=== PATIENT | female | born 1985 | race African-American/Black ===

== ENCOUNTER 2017-12-31 16:04 | Emergency (ER) | payer SELFPAY ==
[2017-12-31] MEDS ORDERED: Gentamicin Ophth Soln 0.3% 5 ml Bottle ONE (17:14)
[2017-12-31] MEDS ORDERED: Ibuprofen 200 MG TAB ONE (17:14)
== END 2017-12-31 17:26 | disposition home or self-care (01) ==
LOC: ERS 16:04
DX: H10.9 Unspecified conjunctivitis (principal); F41.9 Anxiety disorder, unspecified
CPT/HCPCS: 99283

== ENCOUNTER 2020-08-19 14:00 | Emergency (ER) | payer SELFPAY | END 2020-08-19 15:56 | disposition left against medical advice (07) | LOC: ERS 14:00 | DX: Z53.21 Procedure and treatment not carried out due to patient leaving prior to being seen by health care provider (principal) ==

== ENCOUNTER 2023-03-06 08:22 | Emergency (ER) | payer MEDICARE ==
[2023-03-06 09:21] LABS: #Eosinphils 0.2 thou/uL (0.0-0.7); #Monocytes 0.7 thou/uL (0.11-0.59); %Basophils 0.5 % (0.0-1.0); %Eosinophils 2.4 % (0.0-10.0); %Lymphocytes 37.1 % (21.0-51.0); %Monocytes 8.5 % (0.0-10.0); %Neutrophils 51.1 % (42.0-75.0); Hematocrit 38.3 % (36.0-47.0); Hemoglobin 12.4 g/dL (12.0-16.0); Mean Corpuscular HGB CONC 32.4 g/dL (32.0-36.0); Mean Corpuscular Hemoglobin 29.5 pg (27.0-31.0); Mean Platelet Volume 10.1 fL (7.4-10.4); Platelet Count 441 10x3/uL (130-400); RBC Distribution Width 13.2 % (11.5-14.5); Red Blood Cell (RBC) Count 4.21 mill/uL (4.20-5.40); White Blood Cell (WBC) Count 7.9 10x3/uL (4.8-10.8)
[2023-03-06 09:27] LABS: BHCG - Serum Negative (NEGATIVE); Pregs Control Background? CLEAR/WHITE (CLR/WHITE); Pregs Control Bar Appear? YES (CONTROL BAR)
[2023-03-06 09:44] LABS: ALT (SGPT) 50 U/L (8-55); AST (SGOT) 38 U/L (5-34); Albumin 4.3 g/dL (3.5-5.0); Alkaline Phosphatase 90 U/L (40-110); Anion Gap 10 mmol/L (10-20); BUN (Urea Nitrogen) 15 mg/dL (7.0-18.7); Bilirubin, Total 0.2 mg/dL (0.2-1.2); Calc. Creatinine Clearance 0 mL/min (70-130); Calcium 10.1 mg/dL (7.8-10.44); Carbon Dioxide 25 mmol/L (22-29); Chloride 104 mmol/L (98-107); Estimated GFR 82; Globulin 4.4 g/dL (2.4-3.5); Glucose 106 mg/dL (70-105); Potassium 3.7 mmol/L (3.5-5.1); Protein, Total 8.7 g/dL (6.0-8.3); Sodium 135 mmol/L (136-145)
== END 2023-03-06 10:36 | disposition home or self-care (01) ==
LOC: ERS 08:22
DX: R53.83 Other fatigue (principal); I10 Essential (primary) hypertension; Z79.899 Other long term (current) drug therapy
CPT/HCPCS: 36415; 80053; 84443; 84703; 85025; 99283

== ENCOUNTER 2023-03-31 05:06 | Observation (INO) | payer OTHER, MEDICARE ==
[2023-03-31 05:22] LABS: #Basophils 0.1 thou/uL (0.0-0.2); #Monocytes 0.6 thou/uL (0.11-0.59); #Neutrophils 5.1 thou/uL (1.40-6.50); %Basophils 0.6 % (0.0-1.0); %Lymphocytes 32.3 % (21.0-51.0); %Monocytes 7.1 % (0.0-10.0); %Neutrophils 59.8 % (42.0-75.0); Hematocrit 38.3 % (36.0-47.0); Hemoglobin 12.3 g/dL (12.0-16.0); Mean Corpuscular HGB CONC 32.1 g/dL (32.0-36.0); Mean Corpuscular Hemoglobin 29.1 pg (27.0-31.0); Mean Corpuscular Volume 90.8 fl (78.0-98.0); Platelet Count 376 10x3/uL (130-400); RBC Distribution Width 13.2 % (11.5-14.5); Red Blood Cell (RBC) Count 4.22 mill/uL (4.20-5.40); White Blood Cell (WBC) Count 8.5 10x3/uL (4.8-10.8)
[2023-03-31 05:39] LABS: BHCG - Serum Negative (NEGATIVE); Pregs Control Background? CLEAR/WHITE (CLR/WHITE); Pregs Control Bar Appear? YES (CONTROL BAR)
[2023-03-31 05:58] LABS: ALT (SGPT) 53 U/L (8-55); AST (SGOT) 41 U/L (5-34); Alkaline Phosphatase 85 U/L (40-110); Anion Gap 13 mmol/L (10-20); BUN (Urea Nitrogen) 17 mg/dL (7.0-18.7); Bilirubin, Total 0.3 mg/dL (0.2-1.2); Calc. Creatinine Clearance 0 mL/min (70-130); Calcium 9.7 mg/dL (7.8-10.44); Carbon Dioxide 22 mmol/L (22-29); Chloride 104 mmol/L (98-107); Estimated GFR 78; Glucose 194 mg/dL (70-105); Potassium 3.5 mmol/L (3.5-5.1); Sodium 135 mmol/L (136-145)
[2023-03-31 06:01] LABS: Troponin I 0.041 ng/mL (< 0.028)
[2023-03-31] MEDS ORDERED: Acetaminophen 325 MG TAB PO PRN (08:05)
[2023-03-31] MEDS ORDERED: Calcium Carbonate 500 MG ChewTAB PO PRN (08:05)
[2023-03-31] MEDS ORDERED: Senokot S 8.6-50 MG TAB PO PRN (08:05)
[2023-03-31] MEDS ORDERED: Ondansetron PF 4 MG/2 ML Vial IVP PRN (08:05)
[2023-03-31 08:46] LABS: Troponin I 0.026 ng/mL (< 0.028)
[2023-03-31] MEDS ORDERED: Sodium Chloride 0.9% 1,000 ML IV SCH (09:00)
[2023-03-31 09:41] VITALS: BMI 35.0
[2023-03-31 10:34] LABS: Amphetamine Not Detected (NotDetected); Barbiturates Screen Not Detected (NotDetected); Benzodiazepine Screen Not Detected (NotDetected); Cocaine Metabolite Screen Not Detected (NotDetected); Methadone Not Detected (NotDetected); Methamphetamine Not Detected (NotDetected); Opiate Screen Not Detected (NotDetected); Oxycodone Screen Not Detected (NotDetected); Phencyclidine (PCP) Not Detected (NotDetected); THC/Cannabinoid Screen Not Detected (NotDetected); Tricyclic Screen Not Detected (NotDetected)
[2023-03-31] MEDS ORDERED: Iopamidol-370 76% 500 ML MDV (1 ML CHARGE) ONE (15:24)
[2023-03-31 17:09] LABS: Bilirubin Negative (Negative); Blood, Urine Negative (Negative); CAUTI Indications for Culture Fever or rigors; Clarity Clear (Clear); Glucose, Urine (Dipstick) Normal (Negative); Ketone, Urine Negative (Negative); Leukocyte 500 Leu/uL (Negative); Nitrite Negative (Negative); Protein, Urine (Dipstick) Negative (Neg-Trace); RBC/HPF 0-3 HPF (0-3); Urobilinogen Normal mg/dL (Less than 2)
[2023-03-31 17:18] LABS: Bacteria/HPF 1+ HPF (None Seen)
[2023-03-31 17:22] LABS: Transitional Epithelial 0-3 HPF (None Seen)
[2023-03-31 17:23] LABS: Urine Culture Reflex No No
[2023-04-01 06:08] LABS: #Basophils 0.1 thou/uL (0.0-0.2); #Eosinphils 0.3 thou/uL (0.0-0.7); #Monocytes 0.6 thou/uL (0.11-0.59); %Basophils 0.7 % (0.0-1.0); %Eosinophils 3.7 % (0.0-10.0); %Lymphocytes 31.3 % (21.0-51.0); %Neutrophils 56.2 % (42.0-75.0); Hematocrit 36.9 % (36.0-47.0); Hemoglobin 11.7 g/dL (12.0-16.0); Mean Corpuscular HGB CONC 31.7 g/dL (32.0-36.0); Mean Corpuscular Hemoglobin 28.7 pg (27.0-31.0); Mean Corpuscular Volume 90.7 fl (78.0-98.0); Mean Platelet Volume 10.1 fL (7.4-10.4); Platelet Count 353 10x3/uL (130-400); RBC Distribution Width 13.1 % (11.5-14.5); Red Blood Cell (RBC) Count 4.07 mill/uL (4.20-5.40)
[2023-04-01 06:35] LABS: ALT (SGPT) 40 U/L (8-55); AST (SGOT) 29 U/L (5-34); Albumin 3.6 g/dL (3.5-5.0); Alkaline Phosphatase 76 U/L (40-110); Anion Gap 11 mmol/L (10-20); BUN (Urea Nitrogen) 13 mg/dL (7.0-18.7); Bilirubin, Total 0.2 mg/dL (0.2-1.2); Calc. Creatinine Clearance 129 mL/min (70-130); Carbon Dioxide 23 mmol/L (22-29); Cardiac Risk 3.3 (Less than 4.5); Chloride 104 mmol/L (98-107); Cholesterol 163 mg/dl (< 200 Desired); Estimated GFR 91; Globulin 3.7 g/dL (2.4-3.5); Glucose 124 mg/dL (70-105); HDL Cholesterol 49 mg/dL (>60 Neg Risk); LDL Cholesterol, Calculated 85 mg/dL; Potassium 3.8 mmol/L (3.5-5.1); Protein, Total 7.3 g/dL (6.0-8.3); Sodium 134 mmol/L (136-145); Triglycerides 147 mg/dL (Less than 150)
[2023-04-01] MEDS: OXcarbazepine 300 MG TAB PO SCH (20:51)
[2023-04-02] MEDS ORDERED: Lisinopril 10 MG TAB PO SCH (09:00)
[2023-04-02] MEDS ORDERED: Hydrochlorothiazide 25 MG TAB PO SCH (09:00)
[2023-04-02 12:14] VITALS: BP 122/70; TEMP 99.1
[2023-04-02] MEDS: OXcarbazepine 300 MG TAB PO SCH (13:21)
== END 2023-04-02 17:12 | disposition home or self-care (01) ==
LOC: ERS 05:06 → SUATTDRO 05:06 → 2SW 07:59
PROVIDERS: ADMIT Internal Medicine; ATTEND Internal Medicine Critical Care Medicine
DX: R55 Syncope and collapse (principal); I10 Essential (primary) hypertension; F31.9 Bipolar disorder, unspecified; R77.8 Other specified abnormalities of plasma proteins; E66.9 Obesity, unspecified; Z68.35 Body mass index [BMI] 35.0-35.9, adult; Z79.899 Other long term (current) drug therapy; V89.2XXA Person injured in unspecified motor-vehicle accident, traffic, initial encounter
CPT/HCPCS: 70450; 70551; 71045; 71260; 74177; 80053; 80061; 80306; 81001; 83036; 84484 ×2; 84703; 85025; 93005; 93306; 95816; 95819; 95957; 96360; 96372 ×3; 97116; 99285; G0378 ×4; 36415; 84443; J1650; J7050; Q9967

== ENCOUNTER 2024-01-07 17:30 | Emergency (ER) | payer MEDICARE ==
[2024-01-07 19:14] LABS: Hematocrit 36.1 % (36.0-47.0); Hemoglobin 11.5 g/dL (12.0-16.0); Mean Corpuscular HGB CONC 31.9 g/dL (32.0-36.0); Mean Corpuscular Hemoglobin 29.1 pg (27.0-31.0); Mean Corpuscular Volume 91.4 fL (78.0-98.0); Mean Platelet Volume 9.5 fL (7.4-10.4); Platelet Count 523 10x3/uL (130-400); Red Blood Cell (RBC) Count 3.95 mill/uL (4.20-5.40)
[2024-01-07 19:30] LABS: Anion Gap 15 mmol/L (10-20); BUN (Urea Nitrogen) 20 mg/dL (7.0-18.7); Bilirubin, Total 0.2 mg/dL (0.2-1.2); Calc. Creatinine Clearance 0 mL/min (70-130); Carbon Dioxide 22 mmol/L (22-29); Chloride 103 mmol/L (98-107); Estimated GFR 82; Glucose 78 mg/dL (70-105); Sodium 136 mmol/L (136-145)
[2024-01-07 19:31] LABS: ALT (SGPT) 24 U/L (8-55); AST (SGOT) 21 U/L (5-34); Albumin 3.8 g/dL (3.5-5.0); Alkaline Phosphatase 92 U/L (40-110); Globulin 4.8 g/dL (2.4-3.5); Protein, Total 8.6 g/dL (6.0-8.3)
[2024-01-07 19:36] LABS: Band 4 % (5-11); Eosinophils 2 % (0-10); Lymphocytes 49 % (21-51); Monocytes 9 % (0-10); Neutrophil 34 % (42-75); Platelet Adequacy Comment Platelets Increased; RBC Morphology Within Normal Limits; Reactive Lymphocytes 1 % (0-10)
[2024-01-07] MEDS ORDERED: Acetaminophen 500 MG TAB ONE (19:57)
== END 2024-01-07 20:03 | disposition home or self-care (01) ==
LOC: ERS 17:30
DX: R73.02 Impaired glucose tolerance (oral) (principal); I10 Essential (primary) hypertension; E78.5 Hyperlipidemia, unspecified; Z79.84 Long term (current) use of oral hypoglycemic drugs; Z79.4 Long term (current) use of insulin; Z79.899 Other long term (current) drug therapy
CPT/HCPCS: 36415; 36416; 80053; 85025; 99283

== ENCOUNTER 2024-01-08 00:18 | Emergency (ER) | payer MEDICARE | END 2024-01-08 02:38 | disposition left against medical advice (07) | LOC: ERS 00:18 | DX: E16.2 Hypoglycemia, unspecified (principal); E11.9 Type 2 diabetes mellitus without complications; E66.9 Obesity, unspecified | CPT/HCPCS: 36416; 99284 ==

== ENCOUNTER 2024-04-08 08:28 | Inpatient (IN) | payer MEDICARE ==
[2024-04-08] MEDS ORDERED: Acetaminophen 500 MG TAB ONE (09:49)
[2024-04-08] MEDS ORDERED: Ketorolac Tromethamine 30 MG (1 mL) VIAL ONE (09:49)
[2024-04-08] MEDS ORDERED: Ondansetron PF 4 MG/2 ML Vial ONE (09:49)
[2024-04-08 10:04] LABS: #Basophils 0.03 10x3/uL (0.0-0.2); %Basophils 0.4 % (0.0-1.0); %Eosinophils 2.5 % (0.0-10.0); %Lymphocytes 26.6 % (21.0-51.0); %Monocytes 14.8 % (0.0-10.0); %Neutrophils 55.4 % (42.0-75.0); Hematocrit 41.7 % (36.0-47.0); Hemoglobin 13.7 g/dL (12.0-16.0); Mean Corpuscular HGB CONC 32.9 g/dL (32.0-36.0); Mean Corpuscular Hemoglobin 28.2 pg (27.0-31.0); Mean Corpuscular Volume 85.8 fL (78.0-98.0); Mean Platelet Volume 12.3 fL (7.4-10.4); Platelet Count 282 10x3/uL (130-400); Red Blood Cell (RBC) Count 4.86 mill/uL (4.20-5.40)
[2024-04-08 10:10] LABS: Bacteria/HPF None Seen HPF (None Seen); Bilirubin Negative (Negative); Blood, Urine 2+ (Negative); CAUTI Indications for Culture Dysuria,urgency,freq; Clarity Clear (Clear); Glucose, Urine (Dipstick) Greater than 1000 mg/dL (Negative); Ketone, Urine Trace mg/dL (Negative); Leukocyte 500 Leu/uL (Negative); Nitrite Negative (Negative); Protein, Urine (Dipstick) Negative (Neg-Trace); Specific Gravity, Urine 1.028 (1.002-1.036); Urobilinogen Normal mg/dL (Less than 2); WBC/HPF 21-50 HPF (0-3)
[2024-04-08 10:15] LABS: Urine Culture Reflex Yes Yes
[2024-04-08 10:24] LABS: BHCG - Serum Negative (NEGATIVE); Pregs Control Background? CLEAR/WHITE (CLR/WHITE); Pregs Control Bar Appear? YES (CONTROL BAR)
[2024-04-08 12:41] LABS: ALT (SGPT) 72 U/L (8-55); AST (SGOT) 41 U/L (5-34); Albumin 3.6 g/dL (3.5-5.0); Alkaline Phosphatase 143 U/L (40-110); Anion Gap 17 mmol/L (10-20); BUN (Urea Nitrogen) 17 mg/dL (7.0-18.7); Bilirubin, Total 0.4 mg/dL (0.2-1.2); Calc. Creatinine Clearance 0 mL/min (70-130); Calcium 9.7 mg/dL (7.8-10.44); Carbon Dioxide 27 mmol/L (22-29); Chloride 89 mmol/L (98-107); Estimated GFR 49; Globulin 5.3 g/dL (2.4-3.5); Glucose 743 mg/dL (70-105); Protein, Total 8.9 g/dL (6.0-8.3); Sodium 128 mmol/L (136-145)
[2024-04-08 13:34] LABS: Actual Bicarbonate (HCO3v) 29.5 mEq/L (22-28); Base Excess 2.4 mEq/L (-2.0 to +3.0); Calcium, Ionized (venous) 1.16 mmol/L (1.16-1.32); Chloride (VBG) 90 mmol/L (98-106); Hematocrit-VBG 41 % (36.0-47.0); Hemoglobin (Hb) 14.1 g/dL (11.7-15.5); Potassium (VBG) 4.89 mmol/L (3.70-5.30); Sodium 134 mmol/L (133-146); pH (venous) 7.338 (7.32-7.43)
[2024-04-08] MEDS ORDERED: Insulin Regular, Human 100 UNIT/ML 10 ML VIAL ONE (15:05)
[2024-04-08 15:28] LABS: Troponin I 0.023 ng/mL (< 0.028)
[2024-04-08 17:07] LABS: Hemoglobin A1c 11.8 % (4.0-6.0)
[2024-04-08 17:11] LABS: Phosphorus 4.6 mg/dL (2.3-4.7)
[2024-04-08 17:13] LABS: Magnesium 1.9 mg/dL (1.6-2.6)
[2024-04-08] MEDS ORDERED: Glucagon 1 MG/ML KIT IM PRN (17:34)
[2024-04-08] MEDS ORDERED: Dextrose 5% in Water 1,000 ML IV PRN (17:34)
[2024-04-08] MEDS ORDERED: Dextrose 50% Abboject 50 ML SYRINGE SLOW IVP PRN (17:34)
[2024-04-08] MEDS ORDERED: Acetaminophen 325 MG TAB PO PRN (17:35)
[2024-04-08] MEDS ORDERED: Senokot S 8.6-50 MG TAB PO PRN (17:35)
[2024-04-08] MEDS: Magnesium 2 GM/50 ML(in water) 2 GM in Premix 1 BAG IVPB SCH (18:55)
[2024-04-08] MEDS: Sodium Chloride 0.9% 1,000 ML IV SCH (18:56)
[2024-04-08] MEDS: Insulin Regular, Human 100 UNIT/ML 10 ML VIAL SC PRN (19:00)
[2024-04-08] MEDS: Insulin NPH Human Isophane 100 UNITS/ML (10 ML VIAL) SC SCH (19:01)
[2024-04-08] MEDS: Famotidine 20 MG TAB PO SCH (20:38)
[2024-04-09] MEDS: Insulin Regular, Human 100 UNIT/ML 10 ML VIAL SC PRN (03:10)
[2024-04-09] MEDS: Calcium Carbonate 500 MG ChewTAB PO PRN (05:18)
[2024-04-09 07:50] LABS: #Basophils 0.03 10x3/uL (0.0-0.2); %Basophils 0.5 % (0.0-1.0); %Eosinophils 2.2 % (0.0-10.0); %Lymphocytes 35.3 % (21.0-51.0); %Monocytes 13.8 % (0.0-10.0); %Neutrophils 47.9 % (42.0-75.0); Hematocrit 37.3 % (36.0-47.0); Mean Corpuscular HGB CONC 32.2 g/dL (32.0-36.0); Mean Corpuscular Hemoglobin 29.1 pg (27.0-31.0); Mean Corpuscular Volume 90.3 fL (78.0-98.0); Mean Platelet Volume 11.5 fL (7.4-10.4); Platelet Count 273 10x3/uL (130-400); RBC Distribution Width 13.2 % (11.5-14.5); Red Blood Cell (RBC) Count 4.13 mill/uL (4.20-5.40)
[2024-04-09 08:13] LABS: ALT (SGPT) 64 U/L (8-55); AST (SGOT) 40 U/L (5-34); Albumin 3.1 g/dL (3.5-5.0); Alkaline Phosphatase 122 U/L (40-110); Anion Gap 11 mmol/L (10-20); BUN (Urea Nitrogen) 18 mg/dL (7.0-18.7); Bilirubin, Total 0.3 mg/dL (0.2-1.2); Calc. Creatinine Clearance 91 mL/min (70-130); Calcium 8.6 mg/dL (7.8-10.44); Carbon Dioxide 25 mmol/L (22-29); Chloride 101 mmol/L (98-107); Estimated GFR 60; Globulin 4.8 g/dL (2.4-3.5); Glucose 304 mg/dL (70-105); Lipase 165 U/L (8-78); Potassium 3.7 mmol/L (3.5-5.1); Protein, Total 7.9 g/dL (6.0-8.3); Sodium 133 mmol/L (136-145)
[2024-04-09] MEDS: glipiZIDE 5 MG TAB PO SCH (08:51)
[2024-04-09] MEDS: Divalproex Sodium DR 500 MG TAB PO SCH (08:51)
[2024-04-09] MEDS: Empagliflozin 10 MG TAB PO SCH (08:52)
[2024-04-09] MEDS: diphenhydrAMINE 50 MG/ML VIAL IVP SCH (10:22)
[2024-04-09] MEDS: Ondansetron PF 4 MG/2 ML Vial IVP PRN (10:22)
[2024-04-09] MEDS: Cephalexin 250 MG CAP PO SCH (10:23)
[2024-04-09] MEDS ORDERED: Nitroglycerin 0.4 MG TAB (25 Tab Bottle) SL PRN (13:05)
[2024-04-09] MEDS: Lidocaine 2% Viscous Solution 10 ML, Aluminum & Magnesium Hydroxide 30 ML SSW SCH (13:17)
[2024-04-09 14:02] LABS: Troponin I 0.016 ng/mL (< 0.028)
[2024-04-09] MEDS: Aspirin Chewable 81 MG TAB PO SCH (14:20)
[2024-04-09] MEDS: Insulin Regular, Human 100 UNIT/ML 10 ML VIAL SC SCH (14:21)
[2024-04-09 15:40] LABS: HBsAg Index 0.35 S/CO (0-0.99); Hep A IgM AB NONREACTIVE (NonReactive); Hep A IgM S/CO 0.29 S/CO (0-0.79); Hep B Surf Ag NONREACTIVE S/CO (NonReactive); Hep C IgG Ab NONREACTIVE S/CO (NonReactive); Hep C Index 0.14 S/CO (0-0.79)
[2024-04-09 16:12] LABS: HBCM Index 0.13 S/CO (0-0.79); Hepatitis B Core IgM Abs NONREACTIVE S/CO (NonReactive)
[2024-04-09 18:02] VITALS: BMI 34.1
[2024-04-09] MEDS: Hydrocortisone 1% Cream 30 GM TUBE TOP SCH (21:01)
[2024-04-10 08:10] LABS: #Basophils 0.05 10x3/uL (0.0-0.2); %Basophils 0.8 % (0.0-1.0); %Eosinophils 2.1 % (0.0-10.0); %Lymphocytes 45.2 % (21.0-51.0); %Monocytes 9.7 % (0.0-10.0); %Neutrophils 41.7 % (42.0-75.0); Hematocrit 42.2 % (36.0-47.0); Hemoglobin 13.6 g/dL (12.0-16.0); Mean Corpuscular HGB CONC 32.2 g/dL (32.0-36.0); Mean Corpuscular Hemoglobin 28.4 pg (27.0-31.0); Mean Corpuscular Volume 88.1 fL (78.0-98.0); Mean Platelet Volume 11.4 fL (7.4-10.4); Platelet Count 290 10x3/uL (130-400); RBC Distribution Width 13.2 % (11.5-14.5); Red Blood Cell (RBC) Count 4.79 mill/uL (4.20-5.40)
[2024-04-10 08:32] LABS: Anion Gap 11 mmol/L (10-20); BUN (Urea Nitrogen) 14 mg/dL (7.0-18.7); Calc. Creatinine Clearance 111 mL/min (70-130); Calcium 9.6 mg/dL (7.8-10.44); Carbon Dioxide 26 mmol/L (22-29); Chloride 104 mmol/L (98-107); Estimated GFR 76; Glucose 178 mg/dL (70-105); Potassium 4.2 mmol/L (3.5-5.1); Sodium 137 mmol/L (136-145)
[2024-04-10 08:53] VITALS: BP 125/80; TEMP 97.7
[2024-04-10] MEDS: glipiZIDE 5 MG TAB PO SCH (09:06)
[2024-04-10] MEDS: Aspirin Chewable 81 MG TAB PO SCH (09:07)
[2024-04-10] MEDS ORDERED: Regadenoson 0.4 MG/5 ML SYRINGE ONE (11:30)
[2024-04-10] MEDS ORDERED: PALIPERIDONE 6 MG PO SCH (21:00)
== END 2024-04-10 16:07 | disposition home or self-care (01) | DRG 638 ==
LOC: ERS 08:28 → SURG B 15:05 → 2NO 04-09 17:46 → OBSVTOIN 04-10 15:09
PROVIDERS: ADMIT Internal Medicine; ATTEND Internal Medicine
DX: E11.65 Type 2 diabetes mellitus with hyperglycemia (principal); E87.1 Hypo-osmolality and hyponatremia; N17.9 Acute kidney failure, unspecified; N39.0 Urinary tract infection, site not specified; R07.89 Other chest pain; L29.9 Pruritus, unspecified; F41.9 Anxiety disorder, unspecified; N18.2 Chronic kidney disease, stage 2 (mild); E83.42 Hypomagnesemia; Z79.4 Long term (current) use of insulin; Z79.899 Other long term (current) drug therapy; I12.9 Hypertensive chronic kidney disease with stage 1 through stage 4 chronic kidney disease, or unspecified chronic kidney disease
CPT/HCPCS: 36415; 36416; 76705; 78452; 80048; 80053; 80074; 81001; 82010; 82805; 83036; 83690; 83735; 84100; 84484; 84703; 85025; 87077; 87086; 93005; 93010; 93017; 96375; 96376; 97139; A9502; G0378; J1200; J1815; J1885; J2405; J2785; J3475; J7030

== ENCOUNTER 2024-05-24 18:02 | Emergency (ER) | payer MEDICARE | END 2024-05-24 21:21 | disposition home or self-care (01) | LOC: ERS 18:02 | DX: J06.9 Acute upper respiratory infection, unspecified (principal); E11.9 Type 2 diabetes mellitus without complications; I10 Essential (primary) hypertension | CPT/HCPCS: 71045; 87428 ==

== ENCOUNTER 2024-08-10 11:08 | Emergency (ER) | payer MEDICARE ==
[2024-08-10 12:20] LABS: #Basophils 0.06 10x3/uL (0.0-0.2); #Eosinophils Less than 0.03 10x3/uL (0.0-0.7); %Basophils 0.7 % (0.0-1.0); %Eosinophils 0.1 % (0.0-10.0); %Lymphocytes 34.4 % (21.0-51.0); %Monocytes 6.9 % (0.0-10.0); %Neutrophils 57.6 % (42.0-75.0); Hematocrit 39.5 % (36.0-47.0); Hemoglobin 12.4 g/dL (12.0-16.0); Mean Corpuscular HGB CONC 31.4 g/dL (32.0-36.0); Mean Corpuscular Hemoglobin 29.1 pg (27.0-31.0); Mean Corpuscular Volume 92.7 fL (78.0-98.0); Mean Platelet Volume 10.2 fL (7.4-10.4); Platelet Count 451 10x3/uL (130-400); RBC Distribution Width 13.1 % (11.5-14.5); Red Blood Cell (RBC) Count 4.26 mill/uL (4.20-5.40)
[2024-08-10 12:33] LABS: BHCG - Serum Negative (NEGATIVE); Pregs Control Background? CLEAR/WHITE (CLR/WHITE); Pregs Control Bar Appear? YES (CONTROL BAR)
[2024-08-10 12:38] LABS: Bacteria/HPF None Seen HPF (None Seen); Bilirubin Negative (Negative); Blood, Urine 2+ (Negative); CAUTI Indications for Culture Pelvic or flank pain; Clarity Clear (Clear); Glucose, Urine (Dipstick) Greater than 1000 mg/dL (Negative); Ketone, Urine Negative (Negative); Leukocyte 75 Leu/uL (Negative); Nitrite Negative (Negative); Protein, Urine (Dipstick) Negative (Neg-Trace); Specific Gravity, Urine 1.015 (1.002-1.036); Squamous Epithelial 0-3 HPF (0-3); Urobilinogen Normal mg/dL (Less than 2); pH, Urine 6.5 (5.0-9.0)
[2024-08-10 12:39] LABS: Urine Culture Reflex No No
[2024-08-10 12:42] LABS: ALT (SGPT) 52 U/L (Less than 34); AST (SGOT) 59 U/L (11-34); Albumin 4.1 g/dL (3.1-4.5); Alkaline Phosphatase 111 U/L (40-110); Anion Gap 12 mmol/L (10-20); BUN (Urea Nitrogen) 16 mg/dL (7.0-18.7); Bilirubin, Total 0.3 mg/dL (0.3-1.2); Calc. Creatinine Clearance 0 mL/min (70-130); Calcium 10.2 mg/dL (7.8-10.44); Carbon Dioxide 25 mmol/L (22-29); Chloride 104 mmol/L (98-107); Estimated GFR 78; Globulin 5.5 g/dL (2.4-3.5); Glucose 127 mg/dL (70-105); Potassium 3.3 mmol/L (3.5-5.1); Protein, Total 9.6 g/dL (6.0-8.3); Sodium 138 mmol/L (136-145)
== END 2024-08-10 14:25 | disposition home or self-care (01) ==
LOC: ERS 11:08
DX: E87.6 Hypokalemia (principal); E11.9 Type 2 diabetes mellitus without complications
CPT/HCPCS: 36415; 36416; 80053; 80178; 81001; 84703; 85025; 93005; 99284

== ENCOUNTER 2025-05-16 11:41 | Emergency (ER) | payer MEDICARE ==
[2025-05-16 12:24] LABS: Pregnancy Test - Urine (BHCG) Negative (Negative); Pregu Control Background? CLEAR/WHITE (CLR/WHITE); Pregu Control Bar Appear? YES (CONTROL BAR)
[2025-05-16 12:26] LABS: CAUTI Indications for Culture Pelvic or flank pain; Glucose, Urine (Dipstick) Greater than 1000 mg/dL (Negative); Leukocyte 500 Leu/uL (Negative); Protein, Urine (Dipstick) Negative (Neg-Trace); Specific Gravity, Urine 1.023 (1.002-1.036); WBC/HPF Greater than 50 HPF (0-3)
[2025-05-16 12:27] LABS: Bacteria/HPF 1+ HPF (None Seen)
[2025-05-16 12:44] LABS: RBC/HPF 0-3 HPF (0-3)
[2025-05-16] MEDS ORDERED: Ondansetron PF 4 MG/2 ML Vial ONE (12:45)
[2025-05-16 12:47] LABS: Urine Culture Reflex Yes Yes
[2025-05-16 13:15] LABS: #Basophils 0.06 10x3/uL (0.0-0.2); #Eosinophils Less than 0.03 10x3/uL (0.0-0.7); #Monocytes 0.74 10x3/uL (0.11-0.59); #Neutrophils 4.69 10x3/uL (1.40-6.50); %Basophils 0.7 % (0.0-1.0); %Eosinophils 0.0 % (0.0-10.0); %Lymphocytes 36.1 % (21.0-51.0); %Monocytes 8.6 % (0.0-10.0); %Neutrophils 54.5 % (42.0-75.0); Hematocrit 46.3 % (36.0-47.0); Hemoglobin 15.1 g/dL (12.0-16.0); Mean Corpuscular Hemoglobin 28.7 pg (27.0-31.0); Mean Corpuscular Volume 87.9 fL (78.0-98.0); Platelet Count 399 10x3/uL (130-400); Red Blood Cell (RBC) Count 5.27 mill/uL (4.20-5.40); White Blood Cell (WBC) Count 8.61 10x3/uL (4.8-10.8)
[2025-05-16 13:39] LABS: ALT (SGPT) 91 U/L (Less than 34); AST (SGOT) 53 U/L (11-34); Albumin 4.9 g/dL (3.1-4.5); Alkaline Phosphatase 197 U/L (40-110); Anion Gap 18 mmol/L (10-20); BUN (Urea Nitrogen) 16 mg/dL (7.0-18.7); Bilirubin, Total 0.3 mg/dL (0.3-1.2); Calc. Creatinine Clearance 0 mL/min (70-130); Calcium 11.7 mg/dL (7.8-10.44); Carbon Dioxide 27 mmol/L (22-29); Chloride 93 mmol/L (98-107); Globulin 5.0 g/dL (2.4-3.5); Glucose 435 mg/dL (70-105); Lipase 106 U/L (8-78); Potassium 4.3 mmol/L (3.5-5.1); Sodium 134 mmol/L (136-145)
[2025-05-16 13:46] LABS: Actual Bicarbonate (HCO3v) 28.4 mEq/L (22-28); Analyzer IN Cardio ER; Base Excess 1.6 mEq/L (-2.0 to +3.0); Calcium, Ionized (venous) 1.31 mmol/L (1.16-1.32); Chloride (VBG) 93 mmol/L (98-106); Hematocrit-VBG 49 % (36.0-47.0); Hemoglobin (Hb) 16.6 g/dL (11.7-15.5); Potassium (VBG) 4.14 mmol/L (3.70-5.30); Sodium 137 mmol/L (133-146)
[2025-05-16] MEDS ORDERED: cefTRIAXone (ROCEPHIN) 1 GM VIAL ONE (13:47)
== END 2025-05-16 16:20 | disposition home or self-care (01) ==
LOC: ERS 11:41
DX: E11.65 Type 2 diabetes mellitus with hyperglycemia (principal); N39.0 Urinary tract infection, site not specified; E83.52 Hypercalcemia; R11.2 Nausea with vomiting, unspecified; I10 Essential (primary) hypertension
CPT/HCPCS: 80053; 81001; 81025; 82010; 82805; 83690; 85025; 87077; 87086; 93005; 96361; 96365; 96375; J0696; J2405

== ENCOUNTER 2025-06-17 21:20 | Inpatient (IN) | payer MEDICARE ==
[~2025-06-17 21:20] MED LIST: Iopamidol 370 76% 100 ML VIAL ONE
[2025-06-17 22:12] LABS: Actual Bicarbonate (HCO3v) 25.7 mEq/L (22-28); Base Excess 1.1 mEq/L (-2.0 to +3.0); Calcium, Ionized (venous) 1.28 mmol/L (1.16-1.32); Chloride (VBG) 89 mmol/L (98-106); Hematocrit-VBG 43 % (36.0-47.0); Hemoglobin (Hb) 14.5 g/dL (11.7-15.5); Potassium (VBG) 4.17 mmol/L (3.70-5.30); Sodium 132 mmol/L (133-146)
[2025-06-17 22:23] LABS: #Basophils 0.06 10x3/uL (0.0-0.2); #Eosinophils Less than 0.03 10x3/uL (0.0-0.7); #Monocytes 1.06 10x3/uL (0.11-0.59); #Neutrophils 8.47 10x3/uL (1.40-6.50); %Basophils 0.5 % (0.0-1.0); %Eosinophils 0.0 % (0.0-10.0); %Lymphocytes 19.4 % (21.0-51.0); %Monocytes 8.9 % (0.0-10.0); %Neutrophils 70.8 % (42.0-75.0); Hematocrit 39.3 % (36.0-47.0); Hemoglobin 13.2 g/dL (12.0-16.0); Mean Corpuscular Hemoglobin 28.5 pg (27.0-31.0); Mean Corpuscular Volume 84.9 fL (78.0-98.0); Platelet Count 395 10x3/uL (130-400); Red Blood Cell (RBC) Count 4.63 mill/uL (4.20-5.40); White Blood Cell (WBC) Count 11.96 10x3/uL (4.8-10.8)
[2025-06-17 22:28] LABS: Cocaine Metabolite Screen Negative (Negative); THC/Cannabinoid Screen Negative (Negative); Tricyclic Screen Negative (Negative)
[2025-06-17 22:31] LABS: Lithium 1.346 mmol/L (1.0-1.2)
[2025-06-17 22:33] LABS: BHCG - Serum Negative (NEGATIVE); Pregs Control Background? CLEAR/WHITE (CLR/WHITE); Pregs Control Bar Appear? YES (CONTROL BAR)
[2025-06-17 22:43] LABS: ALT (SGPT) 66 U/L (Less than 34); AST (SGOT) 34 U/L (11-34); Albumin 4.3 g/dL (3.1-4.5); Alkaline Phosphatase 190 U/L (40-110); Anion Gap 21 mmol/L (10-20); BUN (Urea Nitrogen) 17 mg/dL (7.0-18.7); Bilirubin, Total 0.4 mg/dL (0.3-1.2); Calc. Creatinine Clearance 0 mL/min (70-130); Calcium 11.1 mg/dL (7.8-10.44); Carbon Dioxide 25 mmol/L (22-29); Chloride 89 mmol/L (98-107); Globulin 4.8 g/dL (2.4-3.5); Glucose 615 mg/dL (70-105); Lipase 221 U/L (8-78); Magnesium 2.0 mg/dL (1.6-2.6); Potassium 4.7 mmol/L (3.5-5.1); Sodium 130 mmol/L (136-145)
[2025-06-18] MEDS ORDERED: Droperidol 5 MG/2 ML VIAL ONE (01:25)
[2025-06-18] MEDS ORDERED: Ondansetron PF 4 MG/2 ML Vial IVP PRN (01:48)
[2025-06-18] MEDS ORDERED: Glucagon 1 MG/ML KIT IM PRN (02:37)
[2025-06-18] MEDS ORDERED: Dextrose 50% Abboject 50 ML SYRINGE SLOW IVP PRN (02:37)
[2025-06-18 02:40] VITALS: BMI 32.3
[2025-06-18 04:28] LABS: #Basophils 0.03 10x3/uL (0.0-0.2); #Eosinophils Less than 0.03 10x3/uL (0.0-0.7); #Monocytes 0.91 10x3/uL (0.11-0.59); #Neutrophils 8.72 10x3/uL (1.40-6.50); %Basophils 0.3 % (0.0-1.0); %Eosinophils 0.0 % (0.0-10.0); %Lymphocytes 18.9 % (21.0-51.0); %Monocytes 7.6 % (0.0-10.0); %Neutrophils 72.8 % (42.0-75.0); Hematocrit 37.8 % (36.0-47.0); Hemoglobin 12.2 g/dL (12.0-16.0); Mean Corpuscular Hemoglobin 28.0 pg (27.0-31.0); Mean Corpuscular Volume 86.9 fL (78.0-98.0); Platelet Count 365 10x3/uL (130-400); Red Blood Cell (RBC) Count 4.35 mill/uL (4.20-5.40); White Blood Cell (WBC) Count 11.98 10x3/uL (4.8-10.8)
[2025-06-18 04:40] LABS: Anion Gap 14 mmol/L (10-20); BUN (Urea Nitrogen) 12 mg/dL (7.0-18.7); Calc. Creatinine Clearance 106 mL/min (70-130); Calcium 10.1 mg/dL (7.8-10.44); Carbon Dioxide 26 mmol/L (22-29); Chloride 99 mmol/L (98-107); Glucose 418 mg/dL (70-105); Potassium 4.3 mmol/L (3.5-5.1); Sodium 135 mmol/L (136-145)
[2025-06-18] MEDS: Enoxaparin 40 MG (0.4 mL) SYRINGE SC SCH (08:31)
[2025-06-18 11:33] VITALS: BP 143/88; TEMP 98.8
[2025-06-18] MEDS: Insulin Glargine 30 UNITS/0.3 ML VIAL SC SCH (12:38)
[2025-06-18] MEDS ORDERED: HYDROcodone/Acetaminophen 5/325 mg Tablet PO PRN (13:20)
[2025-06-18] MEDS: Pantoprazole 40 MG VIAL IVP SCH (14:06)
[2025-06-18] MEDS: Lidocaine 10 ML, Aluminum & Magnesium Hydroxide 30 ML SSW SCH (14:07)
[2025-06-19] MEDS ORDERED: Insulin Glargine 30 UNITS/0.3 ML VIAL SC SCH (09:00)
== END 2025-06-18 16:01 | disposition home or self-care (01) | DRG 392 ==
LOC: ERS 21:20 → OBS 06-18 00:40 → OBSVTOIN 06-18 12:04
PROVIDERS: ADMIT Internal Medicine; ATTEND Internal Medicine
DX: K29.70 Gastritis, unspecified, without bleeding (principal); E87.1 Hypo-osmolality and hyponatremia; K21.9 Gastro-esophageal reflux disease without esophagitis; E86.0 Dehydration; I10 Essential (primary) hypertension; F31.9 Bipolar disorder, unspecified; E83.52 Hypercalcemia; R79.89 Other specified abnormal findings of blood chemistry; E86.1 Hypovolemia; K76.0 Fatty (change of) liver, not elsewhere classified; E11.65 Type 2 diabetes mellitus with hyperglycemia; F25.9 Schizoaffective disorder, unspecified; Z79.84 Long term (current) use of oral hypoglycemic drugs; Z79.899 Other long term (current) drug therapy
CPT/HCPCS: 36415; 36416; 71045; 71275; 74177; 80048; 80053; 80178; 80306; 82010; 82805; 83605; 83690; 83735; 83880; 84478; 84484; 84703; 85025; 93005; 96361; 96372; 96374; 96375; 96376; G0378; J1650; J1790; J1815; J2272; J2470; J7030; Q9967